=== PATIENT | female | born 1980 | race Caucasian/White ===

== ENCOUNTER 2025-03-18 08:48 | Emergency (ER) | payer MEDICAID ==
[~2025-03-18] VITALS: Ht 147.3 cm; Wt 50.0 kg
[2025-03-18 08:54] VITALS: O2SAT 99
[2025-03-18 08:59] VITALS: BP 136/67; PULSE 64; RESP 16; TEMP 36.7; O2SAT 100
== END 2025-03-18 10:07 | disposition left against medical advice (07) ==
LOC: ER 08:48
DX: H53.9 Unspecified visual disturbance (principal)
CPT/HCPCS: 99281